=== PATIENT | female | born 1995 | race Caucasian/White ===

== ENCOUNTER → 2021-04-06 08:50 | Outpatient (CLI) | payer SELFPAY ==
--- NOTE | 2021-04-06 08:58 | US_ITS ---
STUDY: ULTRASOUND OF THE FEMALE PELVIS - COMPLETE REASON FOR EXAM: Female, 26 years old. PELVIC PAIN LMP: 03/20/2021. TECHNIQUE: Transabdominal TECHNICAL QUALITY: Adequate. COMPARISON: None. FINDINGS: The uterus is anteverted and is in a midline position. The uterus measures 7.4 cm x 4.2 cm x 2.7 cm. Normal uterine cervix. The endometrium measures 3.1 mm in thickness, and is hyperechoic. There is no demonstrated endometrial mass. There is no demonstrated myometrial mass. I.U.D. - The patient does not have an I.U.D. The right ovary is visualized. The right ovary measures 4.6 cm x 3.5 cm x 1.7 cm. There is no right ovarian cyst or ovarian mass. There is no visualized right adnexal mass or complex lesion. There is normal arterial and normal venous vascularity. The left ovary is visualized. The left ovary measures 3.6 cm x 2.7 cm x 1.2 cm. There is no left ovarian cyst or ovarian mass. There is no visualized left adnexal mass or complex lesion. There is normal arterial and normal venous vascularity. There is no fluid in the cul-de-sac. The pre void volume of the bladder was 896 ml. Polycystic ovary disease: No. US/Pelvic (Non ) IMPRESSION: Normal female pelvis. Electronically Signed: Kevin Thompson MD at 14:33 EST , Service support ,
== END ==
PROVIDERS: PCP Specialist
DX: R10.2 Pelvic and perineal pain (principal)
CPT/HCPCS: 76856